=== PATIENT | male | born 2005 | race Caucasian/White ===

== ENCOUNTER 2025-05-21 09:28 | Emergency (ER) | payer OTHER ==
[~2025-05-21] VITALS: Ht 175.3 cm; Wt 72.7 kg
[2025-05-21] MEDS ORDERED: AMOX875T PO (11:43)
[2025-05-21 11:50] VITALS: BP 116/57; TEMP 96.9; O2SAT 98
== END 2025-05-21 11:52 | disposition home or self-care (01) ==
LOC: M ED 09:28
DX: H66.92 Otitis media, unspecified, left ear (principal)